=== PATIENT | male | born 1940 | race Caucasian/White ===

== ENCOUNTER 2017-03-02 07:52 | Day surgery (SDC) | payer MEDICARE ==
[~2017-03-02 07:52] MED LIST: EPINEPHRINE INJ 1 MG/10 ML DISP.SYRIN ONE; FLUMAZENIL INJ 0.5 MG/5 ML VIAL IV ONE; GLUCAGON,HUMAN RECOMB 1 MG INJ ONE; NALOXONE HCL INJ/PF 0.4 MG/1 ML SDV ONE; ONDANSETRON HCL INJ/PF 4 MG/2 ML SDV ONE
[2017-03-02 08:27] LABS: HEMATOCRIT 44.2 % (37.9-51.0); HEMOGLOBIN 14.9 g/dL (13.5-17.0); HGB HCT DIFFERENCE 0.5; MEAN CORPUSCULAR HEMOGLOBIN 31.5 pg (27.0-33.4); MEAN CORPUSCULAR HGB CONC 33.7 g/dL (32.0-36.0); MEAN CORPUSCULAR VOLUME 93 fl (80-97); RED BLOOD COUNT 4.73 10^6/uL (4.35-5.55); RED CELL DISTRIBUTION WIDTH 13.2 % (11.5-14.0); WHITE BLOOD COUNT 6.3 10^3/uL (4.0-10.5)
[2017-03-02] MEDS: MIDAZOLAM 2 MG/2 ML INJ ONE ×3 (09:57→10:09)
[2017-03-02] MEDS: FENTANYL CITRATE INJ/PF 100 MCG/2 ML AMPUL ONE ×4 (09:59→10:15)
--- NOTE | 2017-03-02 11:22 | Operative Report ---
Operative Report DATE OF SURGERY: 03/02/17 PREOPERATIVE DIAGNOSIS: History of anemia and colon polyps POSTOPERATIVE DIAGNOSIS: Fox's esophagus, hiatal hernia. Diverticulosis of the colon, rectal polyp. OPERATION: Esophagogastroduodenoscopy with esophageal biopsy. Colonoscopy with snare polypectomy of rectal polyp. SURGEON: LUZ MARIA LUCIO ANESTHESIA: Moderate Sedation TISSUE REMOVED OR ALTERED: Distal esophageal biopsy. Upper rectal polyp. COMPLICATIONS: None ESTIMATED BLOOD LOSS: Minimal INTRAOPERATIVE FINDINGS: 1 cm patch of salmon colored mucosa at the distal esophagus. Small hiatal hernia. Diverticulosis throughout the colon especially the sigmoid colon. Upper rectal half centimeter sessile polyp. PROCEDURE: Informed consent was obtained. Patient was brought to the endoscopy suite. IV sedation with Versed and fentanyl was administered. Endoscope was passed via the patient's mouth into the second portion of the duodenum. Duodenum appeared to be normal. The gastric mucosa appeared to be normal with no ulcers and no erosions. Retroflexed view demonstrated a small hiatal hernia. At the distal esophagus there was a 1 x 1 cm patch of salmon colored mucosa this patch was biopsied. Remainder the esophagus appeared normal. Patient was repositioned. Digital rectal exam revealed no palpable perianal masses. Endoscope was passed via the patient's anus it was fed to the cecum. The bowel prep was good. Visualization was good. Cecum appeared normal. Right colon appeared normal. Transverse colon appeared normal other than a few diverticuli. Few diverticuli was also seen in the descending colon. There were multiple large diverticuli of the sigmoid colon. At the upper rectum there was 1/2 cm sessile polyp which was snare polypectomy. The specimen was retrieved and submitted to pathology. Remainder of the rectum appeared normal. Patient tolerated the procedure well with no apparent complications and was taken to the recovery area in stable condition. Assessment: Possible Fox's esophagus -await biopsy results. Incidental diverticulosis of the colon. Incidental hiatal hernia. Small upper rectal polyp status post successful snare polypectomy. Will await biopsy results. I will have him hold his Xarelto for a few days. Resume his Xarelto if he has no bleeding. I will see him back for follow-up in a couple weeks. Of note on repeat CBC his anemia had resolved. His prior laboratory study had demonstrated mild anemia.
--- NOTE | 2017-03-02 11:26 | PDOC DISCHARGE SUMMARY ---
Discharge Summary (SDC) - Discharge Final Diagnosis: Hiatal hernia, Fox's esophagus, diverticulosis of the colon, upper rectal polyp. Date of Surgery: 03/02/17 Discharge Date: 03/02/17 Condition: Good Forms: Sedation D/C Instructions, Discharge POC-Surgical Service Treatment or Instructions: Esophagogastroduodenoscopy with esophageal biopsy, colonoscopy with snare polypectomy of rectal polyp. May discharge patient home when met discharge criteria. Follow-up with me in 2 weeks. Hold Xarelto for 5 days. If no rectal bleeding resume Xarelto. Call me for any rectal bleeding. Referrals: LUZ MARIA LUCIO MD [ACTIVE STAFF] - 03/17/17 9:45 am Discharge Diet: As Tolerated Discharge Activity: Activity As Tolerated, Balance Activity w/Rest, No Driving Home Care Assistance: None Needed Report the Following to Your Physician Immediately: Shortness of Breath, Increase in Pain, Fever over 101 Degrees, Unusual Bleeding
[2017-03-02 11:44] VITALS: BP 139/81
== END 2017-03-02 11:40 | disposition home or self-care (01) ==
LOC: END 07:52
PROVIDERS: ATTEND Surgery
PROC: 0DBP8ZX Excision of Rectum, Via Natural or Artificial Opening Endoscopic, Diagnostic (ICD-10-PCS; principal; 2017-03-02 09:30)
PROC: 0DB38ZX Excision of Lower Esophagus, Via Natural or Artificial Opening Endoscopic, Diagnostic (ICD-10-PCS; 2017-03-02 09:30)
DX: K22.70 Barrett's esophagus without dysplasia (principal); K62.1 Rectal polyp; K57.30 Diverticulosis of large intestine without perforation or abscess without bleeding; K44.9 Diaphragmatic hernia without obstruction or gangrene; D50.0 Iron deficiency anemia secondary to blood loss (chronic); I48.91 Unspecified atrial fibrillation; I10 Essential (primary) hypertension; F41.9 Anxiety disorder, unspecified; Z79.01 Long term (current) use of anticoagulants; Z87.891 Personal history of nicotine dependence; Z79.899 Other long term (current) drug therapy
CPT/HCPCS: 43239; 45385; 36415; 85027; 88305 ×2; J2250; J3010; J0171; J1610; J2310; J2405; J3490

== ENCOUNTER 2018-11-23 07:07 | Day surgery (SDC) | payer MEDICARE, OTHER ==
[~2018-11-23 07:07] MED LIST changes: -EPINEPHRINE INJ 1 MG/10 ML DISP.SYRIN ONE; -FLUMAZENIL INJ 0.5 MG/5 ML VIAL IV ONE; -GLUCAGON,HUMAN RECOMB 1 MG INJ ONE; +KETOROLAC TROMETHAMINE 0.45% 4 DROP/0.4 ML DROPERETTE OD PRN; -NALOXONE HCL INJ/PF 0.4 MG/1 ML SDV ONE; -ONDANSETRON HCL INJ/PF 4 MG/2 ML SDV ONE
[2018-11-23] MEDS ORDERED: MIDAZOLAM 2 MG/2 ML INJ ONE (07:14)
[2018-11-23] MEDS ORDERED: EPINEPHRINE INJ/PF 1 MG/1 ML AMPULE ONE (07:21)
[2018-11-23] MEDS ORDERED: CHONDR SU A NA/HYALUR INTRAOC KIT (SURGICARE) ONE (07:22)
[2018-11-23] MEDS ORDERED: LIDOCAINE 1% INJ-PF (10 MG/ML) 30 ML SDV ONE (07:22)
[2018-11-23] MEDS: TROPICAMIDE 1% OPH SOLN 3 ML OD PRN ×3 (08:00→08:20)
[2018-11-23] MEDS: BESIFLOXACIN HCL 0.6% OPH SUSP 5 ML BOTTLE OD PRN ×4 (08:00→09:02)
[2018-11-23] MEDS: CYCLOPENTOLATE 0.2%/PHENYLEPHRINE 1% OPH SOLN 2 ML OD PRN ×3 (08:00→08:20)
[2018-11-23] MEDS: TETRACAINE HCL 0.5% OPH SOLN 0.6 ML DROPERETTE OD PRN ×3 (08:00→08:39)
[2018-11-23] MEDS ORDERED: LIDOCAINE 1%/PHENYLEPHRINE 1.5% 1 ML VIAL ONE (08:25)
[2018-11-23] MEDS: TOBRAMYCIN SULFATE/DEXAMETH OPH OINTMENT 3.5 GM ONE ×2 (09:00)
== END 2018-11-23 09:40 | disposition home or self-care (01) ==
LOC: SC 07:07
PROVIDERS: ATTEND Ophthalmology
DX: H25.11 Age-related nuclear cataract, right eye (principal); I10 Essential (primary) hypertension; I25.10 Atherosclerotic heart disease of native coronary artery without angina pectoris; I48.91 Unspecified atrial fibrillation; M10.9 Gout, unspecified; Z85.828 Personal history of other malignant neoplasm of skin; Z79.899 Other long term (current) drug therapy; Z79.01 Long term (current) use of anticoagulants
CPT/HCPCS: 66982; V2632; J2250; J3490 ×2; J0171; J2370

== ENCOUNTER 2018-12-07 06:32 | Day surgery (SDC) | payer MEDICARE, OTHER ==
[~2018-12-07 06:32] MED LIST changes: -KETOROLAC TROMETHAMINE 0.45% 4 DROP/0.4 ML DROPERETTE OD PRN; +KETOROLAC TROMETHAMINE 0.45% 4 DROP/0.4 ML DROPERETTE OS PRN
[2018-12-07] MEDS ORDERED: MIDAZOLAM 2 MG/2 ML INJ ONE (06:39)
[2018-12-07] MEDS ORDERED: FENTANYL CITRATE INJ/PF 100 MCG/2 ML AMPUL ONE (06:39)
[2018-12-07] MEDS: CYCLOPENTOLATE 0.2%/PHENYLEPHRINE 1% OPH SOLN 2 ML OS PRN ×3 (06:52→07:13)
[2018-12-07] MEDS: TROPICAMIDE 1% OPH SOLN 3 ML OS PRN ×3 (06:52→07:13)
[2018-12-07] MEDS: BESIFLOXACIN HCL 0.6% OPH SUSP 5 ML BOTTLE OS PRN ×4 (06:53→07:53)
[2018-12-07] MEDS: TETRACAINE HCL 0.5% OPH SOLN 0.6 ML DROPERETTE OS PRN ×3 (06:54→07:30)
[2018-12-07] MEDS: EPINEPHRINE INJ/PF 1 MG/1 ML AMPULE ONE ×2 (07:38)
[2018-12-07] MEDS: CHONDR SU A NA/HYALUR INTRAOC KIT (SURGICARE) ONE ×2 (07:38)
[2018-12-07] MEDS: LIDOCAINE 1% INJ-PF (10 MG/ML) 30 ML SDV ONE ×2 (07:38)
[2018-12-07] MEDS: DORZOLAMIDE HCL 2%/TIMOLOL MALEAT 0.5% OPH SOLN 10 ML OS PRN ×2 (07:53)
[2018-12-07] MEDS: TOBRAMYCIN SULFATE/DEXAMETH OPH OINTMENT 3.5 GM ONE ×2 (07:53)
== END 2018-12-07 08:30 | disposition home or self-care (01) ==
LOC: SC 06:32
PROVIDERS: ATTEND Ophthalmology
DX: H25.12 Age-related nuclear cataract, left eye (principal); Z98.41 Cataract extraction status, right eye; I25.10 Atherosclerotic heart disease of native coronary artery without angina pectoris; I48.91 Unspecified atrial fibrillation; E78.00 Pure hypercholesterolemia, unspecified; I10 Essential (primary) hypertension; N40.0 Benign prostatic hyperplasia without lower urinary tract symptoms; Z79.899 Other long term (current) drug therapy; Z79.01 Long term (current) use of anticoagulants; Z87.891 Personal history of nicotine dependence; Z85.828 Personal history of other malignant neoplasm of skin
CPT/HCPCS: 66982; V2632; J2250; J3490 ×3; J0171; J3010; 142